=== PATIENT | male | born 1940 | race Caucasian/White ===

== ENCOUNTER 2016-04-29 09:51 | Day surgery (SDC) | payer MEDICARE, OTHER ==
--- NOTE | ~2016-04-29 | EGD ---
EGD REPORT [facility] [address] [place]. [address] NAME: MARCELA KEARNS : [birth year] STATUS : REG [facility]#: [id number] AGE: 75 ADM/REG DATE : 04/29/16 MR#: [id number] REPORT SERV DATE: 04/29/16 DICTATED BY: HEIDY STRONG DATE: 04/29/16 REPORT STATUS : Draft TRANSCRIBED BY: [facility] DATE: 04/29/16 [facility] Center Patient Name: Marcela Kearns Date of : 1940 Attending MD: HEIDY STRONG MD Procedure Date No Time: 04/29/2016 Procedure: Colonoscopy Indications: FH of Colon Cancer -distant relative, Personal history of colonic polyps, Personal history of malignant neoplasm of the prostate, Last colonoscopy: March 2011 Referring MD: Pau Eli Medicines: Propofol per Anesthesia Complications: No immediate complications. Estimated blood loss: None. Procedure: Pre-Anesthesia Assessment: - After reviewing the risks and benefits, the patient was deemed in satisfactory condition to undergo the procedure. - Prior to the procedure, a History and Physical was performed, and patient medications and allergies were reviewed. The patient's tolerance of previous anesthesia was also reviewed. The risks and benefits of the procedure and the sedation options and risks were discussed with the patient. All questions were answered, and informed consent was obtained. Prior Anticoagulants: The patient has taken no previous anticoagulant or antiplatelet agents. ASA Grade Assessment: II - A patient with mild systemic disease. After reviewing the risks and benefits, the patient was deemed in satisfactory condition to undergo the procedure. After I obtained informed consent, the scope was passed under direct vision. Throughout the procedure, the patient's blood pressure, pulse, and oxygen saturations were monitored continuously. The CF [id number] was introduced through the anus and advanced to the cecum, identified by appendiceal orifice and ileocecal valve. The colonoscopy was performed without difficulty. The ileocecal valve and appendiceal orifice were photographed. The patient tolerated the procedure well. The quality of the bowel preparation was adequate. The bowel preparation used was split dose polyethylene glycol (PEG). Scope withdrawal time was 6 minutes. Findings: The perianal and digital rectal examinations were normal. Pertinent negatives include normal sphincter tone. EGD REPORT [address] [address] NAME: MARCELA KEARNS JR : [birth year] STATUS : REG [facility] PAT#: [id number] AGE: 75 ADM/REG DATE : 04/29/16 MR#: [id number] REPORT SERV DATE: 04/29/16 DICTATED BY: HEIDY STRONG DATE: 04/29/16 REPORT STATUS : Draft TRANSCRIBED BY: [employer] DATE: 04/29/16 The entire examined colon appeared normal on direct and retroflexion views. Impression: - The entire examined colon is normal on direct and retroflexion views. Recommendation: - Discharge patient to home (ambulatory). - Return to previous diet. - Continue present medications. - Repeat colonoscopy in 5 years for screening purposes and for surveillance. - Patient has a contact number available for emergencies. The signs and symptoms of potential delayed complications were discussed with the patient. Return to normal activities tomorrow. Written discharge instructions were provided to the patient. Procedure Code(s): --- Professional --- 41021, Colonoscopy, flexible, proximal to splenic flexure; diagnostic, with or without collection of specimen(s) by brushing or washing, with or without colon decompression (separate procedure) Diagnosis Code(s): --- Professional --- Z80.0, Family history of malignant neoplasm of digestive organs Z86.010, Personal history of colonic polyps Z85.46, Personal history of malignant neoplasm of prostate CPT copyright 2013 [employer]. All rights reserved. The codes documented in this report are preliminary and upon vocational trainer review may be revised to meet current compliance requirements. HEIDY STRONG MD 04/29/2016 12:14 PM This report has been signed electronically. Number of Addenda: 0 Note Initiated On: 04/29/2016 11:48 AM Scope Withdrawal Time 0 hours 6 minutes 1 second [id number] [address]
[~2016-04-29 09:51] MED LIST: ASAB PO; BYSTOLIC10 MG PO; CYANO1000T PO; FOLIC PO; GLUCOPHAGE1000 MG PO; LIPITOR40 PO; PRILO PO; PRIN20 PO; VITAMIN D1000 UNI1 PO
== END 2016-04-29 23:59 | disposition home or self-care (01) ==
LOC: DMU 09:51
PROVIDERS: Internal Medicine Gastroenterology
PROC: 0DJD8ZZ Inspection of Lower Intestinal Tract, Via Natural or Artificial Opening Endoscopic (ICD-10-PCS; principal; 2016-04-29 11:15)
DX: Z12.11 Encounter for screening for malignant neoplasm of colon (principal); K21.9 Gastro-esophageal reflux disease without esophagitis; I10 Essential (primary) hypertension; E78.00 Pure hypercholesterolemia, unspecified; E11.9 Type 2 diabetes mellitus without complications; Z80.0 Family history of malignant neoplasm of digestive organs; Z86.010 Personal history of colon polyps; Z85.46 Personal history of malignant neoplasm of prostate; Z87.891 Personal history of nicotine dependence; Z79.82 Long term (current) use of aspirin; Z79.84 Long term (current) use of oral hypoglycemic drugs; Z79.899 Other long term (current) drug therapy; Z90.79 Acquired absence of other genital organ(s); Z98.890 Other specified postprocedural states
CPT/HCPCS: 82962; J0456